=== PATIENT | female | born 1980 | race Caucasian/White ===

== ENCOUNTER 2020-02-16 07:00 | Outpatient (RCR) | payer BC, SELFPAY | END 2020-03-19 12:33 | disposition home or self-care (01) | LOC: PT.CARL 07:00 | PROVIDERS: Visit Provider Nurse Practitioner Family | DX: M77.12 Lateral epicondylitis, left elbow (principal) | CPT/HCPCS: 97010; 97012; 97014; 97033; 97035; 97110; 97140; 97163; 97164; G0283 ==